=== PATIENT | male | born 1955 | race Caucasian/White ===

== ENCOUNTER 2021-04-29 10:44 | Emergency (ER) | payer OTHER, SELFPAY ==
--- NOTE | 2021-04-29 10:46 | XRR_ITS ---
PROCEDURE INFORMATION: Exam: XR Left Knee Exam date and time: 04/29/2021 10:46 AM Age: 66 years old Clinical indication: Pain; Knee; Left TECHNIQUE: Imaging protocol: XR Left knee. Views: 3 views. COMPARISON: No relevant prior studies available. FINDINGS: Bones/joints: No fracture. No dislocation. There is narrowing of the medial femoral tibial and patellofemoral joint compartments associated with osteophyte formation compatible with osteoarthritis. Focal calcification adjacent to the medial femoral condyle can be due to prior medial collateral ligament injury. No definite joint effusion. Soft tissues: No acute soft tissue abnormality. XR/XR knee LT 3V* [id number] IMPRESSION: Osteoarthritis.
[2021-04-29 11:29] VITALS: PULSE 96; RESP 18; TEMP 36.7; O2SAT 96; BMI 28.3
[2021-04-29 11:34] VITALS: BP 159/99; PULSE 96; RESP 18; O2SAT 95
--- NOTE | 2021-04-29 11:35 | W.ED.LOWEXIN ---
HPI - Extremity Injury (Lower) General: Chief Complaint: Extremity Injury, Lower Stated Complaint: L knee pain Time Seen by Provider: 04/29/21 11:04 Source: patient Mode of arrival: ambulatory (with use of cane) Limitations: no limitations History of Present Illness: HPI Narrative: Patient is a nice 66-year-old male who presents to ED today for evaluation of his left knee. Patient tells me he has had chronic pain in the knee for several years. He states he has had four arthroscopies completed by his orthopedic surgeon in [place]. He tells me he has significant meniscus pathology and has been recommended for a total knee replacement. He states because of this his knee often feels unstable and prone to injury. Patient tells me yesterday he stepped wrong and tweaked it . He states since that time he has noticed worsening pain and swelling. He is ambulating with a cane. complaint: knee injury Onset (ago): day(s) (yesterday) Injury: Left: knee Severity: moderate Relieving factors: immobilization Exacerbating factors: weight bearing, movement and palpation Associated symptoms: Reports no associated symptoms Other symptoms: none Review of Systems Musc: Reports: joint pain (L knee) and joint swelling (L knee); Denies: extremity pain, extremity swelling or joint redness Skin/Breast: Denies: erythema Neuro: Denies: numbness in extremities or sensory changes Physical Exam Const: COMMON NORMALS: no acute distress, patient oriented x3, no limitations and alert GENERAL APPEARANCE: cooperative Extremity: GENERAL: Yes normal exam except as noted RIGHT LOWER EXTREMITY: Yes knee joint Right knee: Yes palpation (TTP medial joint line; mild effusion present ) and Yes neurovascular exam (normal) Neuro: COMMON NORMALS: patient oriented x3, moves all extremities, no focal motor deficits and no sensory deficits noted SENSORIUM/ORIENTATION: Yes alert Skin: COMMON NORMALS: no rashes or lesions noted GENERAL SKIN EXAM: no rashes or lesions noted TRAUMA: no lacerations or abrasions Course Vital Signs: Vital signs: Vital Signs Temperature 98.1 F 04/29/21 11:29 Pulse Rate 75 04/29/21 12:23 Respiratory Rate 18 04/29/21 12:23 Blood Pressure 127/87 04/29/21 12:23 Pulse Oximetry 97 04/29/21 12:23 MDM - Extremity Injury (Lower) Imaging Data^: XR L knee: Radiologist's impression: [facility] [address] [place] [address] XRay Report Signed Patient: Ramon Perez Unit #: [id number] : [id number] Age/Sex: 66 / M ADM Date: 04/29/21 Loc: ER Room/Bed: Attending Dr: Ordering Provider/Ordering MD: Margarito Mendoza DO Date of Service: 04/29/21 Procedure(s): XR knee LT 3V* [id number] Accession Number(s): [id number] Report Number: [id number] PROCEDURE INFORMATION: Exam: XR Left Knee Exam date and time: 04/29/2021 10:46 AM Age: 66 years old Clinical indication: Pain; Knee; Left TECHNIQUE: Imaging protocol: XR Left knee. Views: 3 views. COMPARISON: No relevant prior studies available. FINDINGS: Bones/joints: No fracture. No dislocation. There is narrowing of the medial femoral tibial and patellofemoral joint compartments associated with osteophyte formation compatible with osteoarthritis. Focal calcification adjacent to the medial femoral condyle can be due to prior medial collateral ligament injury. No definite joint effusion. Soft tissues: No acute soft tissue abnormality. XR/XR knee LT 3V* [id number] IMPRESSION: Osteoarthritis. Dictated By: Parminder Hill Signed By: Parminder Hill Signed Date/Time: 04/29/21 1305 DD/ 1303 Discharge Plan Discharge Patient Disposition: Home Clinical Impression: Internal derangement of left knee Condition: Stable Prescriptions: New prednisone 10 mg tablet 60 mg PO DAILY 5 Days Qty: 30 RF: 0 ibuprofen 800 mg tablet 800 mg PO Q8H PRN (Reason: pain) Qty: 15 RF: 0 hydrocodone-acetaminophen 5-325 mg tablet 1 tab PO Q6H PRN (Reason: pain) Qty: 10 RF: 0 Discharge Orders: Discharge ED (Routine); Ordered 04/29/21 Ordered By: Viktoriya Hartmann Patient Instructions: Knee Pain (ED), Opioid Safety Activity Restrictions/Additional Instructions: [facility] fighting the nationwide opiate epidemic. We are providing ALL patients with information regarding opiate safety. If you received opiate pain medication during your stay or if you received a prescription for opiate pain medication-please review this handout. If not, you may disregard. Thank you. Coding Level of Care Code ED Flight Dispatcher for Paulette Fwkristin Exam Expanded Problem Focused
[2021-04-29 12:23] VITALS: BP 127/87; PULSE 75; RESP 18; O2SAT 97
== END 2021-04-29 12:25 | disposition home or self-care (01) ==
PROVIDERS: Emergency Provider Physician Assistant
DX: M23.92 Unspecified internal derangement of left knee (principal)
CPT/HCPCS: 73562; 99282